=== PATIENT | female | born 1985 | race Caucasian/White ===

== ENCOUNTER → 2020-03-01 | Outpatient (CLI) | payer BC ==
[~2020-03-01] MED LIST: BIOTIN1 MG; BIRTH CONTROL PILL; FLEXERIL 1010 MG/TAB PO; MOTRIN 800800 MG/TAB PO; NORCO 325 MG-51 TAB PO; PERCOCET 325 MG1 TA2 PO; PRENATAL1 TA7 PO; PROTONIX 40MG T40 MG PO; ST JOHN S WORT; VALIUM 5MG T5 MG/TAB PO; [UNRECOGNIZED DRUG - OTHER]
== END ==
LOC: DIA.ED
DX: O24.419 Gestational diabetes mellitus in pregnancy, unspecified control (principal)
CPT/HCPCS: G0108

== ENCOUNTER → 2020-03-15 | Outpatient (CLI) | payer BC | LOC: DIA.ED 11:42 | DX: O24.419 Gestational diabetes mellitus in pregnancy, unspecified control (principal) | CPT/HCPCS: G0108 ==

== ENCOUNTER 2020-04-13 07:56 | Inpatient (IN) | payer BC ==
[~2020-04-13] VITALS: Ht 154.9 cm; Wt 62.3 kg
--- NOTE | 2020-04-13 09:15 | NUR ---
Report received from Rylee Potts at [facility]. Pt gave via at home at approx 0555, 30 min- 1 hour after ctx started and water broke. Ambulance was called and arrived at the home approx 5 min after infant's . Pt arrived at [facility] via ambulance at 0626. Per reports she had not yet delivered placenta upon arrival Placenta delivered at 0631. Pt reported had what they thought was a small placental tear, but required no stitches. Pt was being given LR with pitocin at 150 mg/ hr. She received a bolus of 1000 ml NS after BP dropped to 70's /50's. Pt also given 4 mg zofran at that time for nausea. Assessment at [place] included fundal height of 1 down from umbilicus, VSS, bleeding min to moderate.18 gauge IV in right forearm and 20 gauge IV in left forearm. Pt was GDM, diet controlled and 37+ weeks gestation. Pt and presently in route to [facility] for admission via ambulance. 0940: Report received from EMS transport team. Pt's VSS with minimal bleeding. Pt doing own fundal massage. Currently has LR with pitocin running at 125 ml/hr.
[2020-04-13 10:05] VITALS: BP 108/53; PULSE 75; TEMP 98.4
--- NOTE | 2020-04-13 10:05 | NUR ---
Patient onto unit via stretcher from EMS. Report from Joselito received. Patient oriented to room and plan of care. VS taken. Fundus firm, lochia WNL. Assessment completed. Consents signed.
[2020-04-13] MEDS ORDERED: LEXAPRO20 MG PO (10:20)
[2020-04-13] MEDS ORDERED: OSCAL 500 TAB500 MG PO (10:21)
[2020-04-13 11:47] LABS: BASO % 0.2 % (0.0-2.0); EOS % 0.1 % (0-4.0); GRAN # 10.5 (1.4-6.5); GRAN % 86.7 % (42.2-75.2); LYMPH # 0.9 (1.2-3.4); LYMPH % 7.3 % (20.0-51.0); MEAN CELL VOLUME 97 fl (80.0-100.0); MEAN CORPUSCULAR HGB CONC 34 g/dl (33.0-37.0); MEAN PLATELET VOLUME 10.1 fl (7.4-10.4); MONO # 0.6 (0.1-0.6); PLATELET COUNT 192 K/mm3 (130-400); REDCELL DISTRIBUTION WIDTH-CV 13.4 % (11.5-14.5)
[2020-04-13 11:48] LABS: HEMOGLOBIN 9.6 g/dl (12.5-16.0); MEAN CORPUSCULAR HEMOGLOBIN 33 pg (27.0-31.0)
[2020-04-13 12:35] VITALS: BP 112/58; PULSE 70; TEMP 98.5
[2020-04-13 17:33] VITALS: BP 103/69; PULSE 70; TEMP 97.5
[2020-04-13 20:30] VITALS: BP 129/54; PULSE 70; TEMP 98.4
[2020-04-14 02:35] VITALS: BP 117/71; PULSE 67; TEMP 98.2
[2020-04-14 08:00] VITALS: BP 128/68; PULSE 66; TEMP 97.7
[2020-04-14] MEDS ORDERED: IBU600 MG PO (08:43)
== END 2020-04-14 13:00 | disposition home or self-care (01) | DRG 776 ==
LOC: OB 07:56
PROVIDERS: ADMIT Student in an Organized Health Care Education/Training Program
DX: Z39.0 Encounter for care and examination of mother immediately after delivery (principal); O24.410 Gestational diabetes mellitus in pregnancy, diet controlled; O99.343 Other mental disorders complicating pregnancy, third trimester; F41.9 Anxiety disorder, unspecified; O35.9XX0 Maternal care for (suspected) fetal abnormality and damage, unspecified, not applicable or unspecified; Z3A.37 37 weeks gestation of pregnancy

== ENCOUNTER 2022-02-09 19:55 | Outpatient (CLI) | payer BC ==
[~2022-02-09] VITALS: Ht 154.9 cm; Wt 60.0 kg
[~2022-02-09 19:55] MED LIST changes: +IBU600 MG PO; +LEXAPRO20 MG PO; +OSCAL 500 TAB500 MG PO
--- NOTE | 2022-02-09 20:00 | NUR ---
to unit via wheelchair, accompanied by spouse for labor assessment. Pt reports contractions started getting stronger @ 1630, stating "I took my Procardia @ 1530" Oriented to room monitor plan of care.
[2022-02-09 20:15] VITALS: BP 142/91; PULSE 87
--- NOTE | 2022-02-09 20:50 | NUR ---
Plan of care reviewed with pt and sppouse. Questions invited and answered. 18 gauge to L hand, labs obtained. IV of LR started @ bolus rate. Terb 0.25 mg SQ to L upper arm.
[2022-02-09 21:00] VITALS: PULSE 95
[2022-02-09] MEDS ORDERED: GLUCOPHAGE500 MG/TAB PO (21:43)
[2022-02-09] MEDS ORDERED: PROCARDIA10 MG PO (21:44)
[2022-02-09] MEDS ORDERED: ZOLOFT 100MG100 MG PO (21:45)
[2022-02-09 22:00] VITALS: PULSE 97
--- NOTE | 2022-02-09 22:00 | NUR ---
IV to INT.
[2022-02-09 22:30] VITALS: PULSE 93
[2022-02-09 22:51] LABS: COLLECTION METHOD CLEAN CATCH
[2022-02-09 22:58] LABS: MUCOUS Present (NOT PRESENT); PH 6 (5-8); SQUAMOUS EPITHELIAL None Seen /hpf (0-10); URINE APPEARANCE Clear (CLEAR/HAZY); URINE BACTERIA Rare /hpf (NONE SEEN); URINE BILIRUBIN Negative (NEGATIVE); URINE BLOOD Negative (NEGATIVE); URINE COLOR Straw (YELLOW); URINE GLUCOSE Negative (NEGATIVE); URINE KETONE 1+ (NEGATIVE); URINE LEUKOCYTE ESTERASE Negative (NEGATIVE); URINE NITRATE Negative (NEGATIVE); URINE PROTEIN(semi-quant) Negative (NEGATIVE); URINE RBC None Seen /hpf (0-2); URINE UROBILINOGEN Negative (NEGATIVE); URINE WBC 0-2 /hpf (0-2)
[2022-02-09 23:00] VITALS: PULSE 91
[2022-02-09 23:30] VITALS: BP 102/55; PULSE 78
--- NOTE | 2022-02-10 07:32 | NUR ---
0732 - EFM TRACING MATERNAL HR. MONITOR ADJUSTED. CARE ONGOING.
== END 2022-02-10 09:00 | disposition home or self-care (01) ==
LOC: LDRO 19:55
PROVIDERS: Obstetrics & Gynecology
DX: O47.03 False labor before 37 completed weeks of gestation, third trimester (principal); Z3A.33 33 weeks gestation of pregnancy
CPT/HCPCS: J3105; J7120

== ENCOUNTER 2022-02-11 13:41 | Outpatient (CLI) | payer BC ==
[~2022-02-11] VITALS: Ht 154.9 cm; Wt 60.5 kg
[~2022-02-11 13:41] MED LIST changes: +GLUCOPHAGE500 MG/TAB PO; +PROCARDIA10 MG PO; +ZOLOFT 100MG100 MG PO
--- NOTE | 2022-02-11 13:45 | NUR ---
1345 PT ARRIVED AMBULATORY TO UNIT WITH CONCERNS OF POSSIBLE ROM. PT REPORTS OCCASIONAL LEAKING BUT UNSURE IF URINE OR AMNIOTIC FLUID. PT REPORTS INCONSISTENT CONTRACTIONS, NORMAL MOVEMENT OF BABY, DENIES VAGINAL BLEEDING. PT IN GOWN AND ON MONITORS. VITAL SIGNS WNL. ROM+ COLLECTED PER DR. JONES ORDER. PLAN OF CARE DISCUSSED WITH PT AND WHO IS AT BEDSIDE.
[2022-02-11 14:33] VITALS: BP 122/77; PULSE 74
== END 2022-02-11 14:45 | disposition home or self-care (01) ==
LOC: LDRO 13:41
DX: Z34.93 Encounter for supervision of normal pregnancy, unspecified, third trimester (principal); Z3A.33 33 weeks gestation of pregnancy

== ENCOUNTER → 2022-02-27 | Outpatient (CLI) | payer BC ==
[~2022-02-27] VITALS: Ht 154.9 cm; Wt 61.8 kg
[~2022-02-27] MED LIST changes: +IBU800 M1 PO
[2022-02-27 16:30] VITALS: BP 120/64; PULSE 70; TEMP 98.9
--- NOTE | 2022-02-27 17:30 | NUR ---
36 YO AT 36.0 WKS GESTATION TO LR [address] TOUSSAINT OFFICE FOR IV FLUIDS AND MONITORING. PT WAS HAVING LATE DECELERATIONS IN OFFICE, PT REPORTS A FEW IRREG CTXS, DENIES VAGINAL BLEEDING OR LEAKING FLUID AND REPORTS GOOD ACTIVITY
--- NOTE | 2022-02-27 17:37 | NUR ---
1635 20 G TO LEFT HAND X1 ATTEMPT, LR BOLUS STARTED, INFUSING WITHOUT DIFFICULTY
--- NOTE | 2022-02-27 17:40 | NUR ---
1700 - DR KULKARNI PHONES RN, NOTIFIED CAT 1 TRACING, ONLY 3 CTXS IN THE HOUR, IV FLUIDS ALMOST INFUSED. ORDER TO DISMISS HOME WHEN FLUIDS INFUSED 172 - DISCHARGE INSTRUCTIONS GIVEN, VERBALIZES GOOD UNDERSTANDING, IV FLUIDS INFUSED, IV DC'D 173 - DISMISSED AMBULATORY WITH
== END ==
LOC: LDRO 15:55
DX: Z34.90 Encounter for supervision of normal pregnancy, unspecified, unspecified trimester (principal); Z3A.00 Weeks of gestation of pregnancy not specified
CPT/HCPCS: J7120

== ENCOUNTER 2022-03-07 14:29 | Inpatient (IN) | payer BC ==
[2022-03-07] VITALS (27 sets, daily range): BP systolic 106–146; BP diastolic 56–82; PULSE 57–110; TEMP 97.6–98
[~2022-03-07] VITALS: Ht 154.9 cm; Wt 62.7 kg
[~2022-03-07 14:29] MED LIST changes: -IBU800 M1 PO
--- NOTE | 2022-03-07 14:35 | NUR ---
PT ARRIVES VIA WHEELCHAIR TO UNIT C/O CONTRACTIONS AND REPORTS HX OF PRECIPITOUS LABORS, LAST BABY BORN AT HOME. PT LIVES 1.5 HOURS AWAY. STATES CONTRACTIONS STARTED AROUND 1220, WORSENING WITH PAIN AND CURRENTLY EVERY 3-5 MINUTES APART. THIS NURSE AT BEDSIDE, PT UNABLE TO TALK THROUGH CONTRACTIONS. FIRM WITH PALPATION. DENIES LOF AND REPORTS POSITIVE MOVEMENT. CATEGORY 1 EFM TRACING UPON ARRIVAL. INITIAL SVE 3/70/-2. NO FLUID NOTED ON GLOVE.
--- NOTE | 2022-03-07 15:10 | NUR ---
1510-Orders recieved to admit patient. THIERNO Gregory notified of patients desire for an epidural. 1515- IV to left forearm blood collected and sent to lab per orders, IVF infusing. 1520-Patient sitting upright for an epidural placement. 1527-Test dose administered by THIERNO Gregory. Patient tolerated procedure well See anesthesia records. 1535-Patient calls out reports "I feel pressure and I think my water broke" Large amount of clear fluid fills under pad. SVE 4-5/80/-1. No fluid on exam glove. Amnitest of fluid on pad +. Notified see MD notification.
[2022-03-07 15:33] LABS: BASO % 0.4 % (0.0-2.0); EOS # 0.1 K/mm3 (0.0-0.7); EOS % 0.6 % (0.0-4.0); GRAN # 5.8 K/mm3 (1.4-6.5); GRAN % 72.7 % (42.2-75.2); HEMATOCRIT 37.8 % (37.0-47.0); LYMPH # 1.5 K/mm3 (1.2-3.4); LYMPH % 18.3 % (20.0-51.0); MEAN CELL VOLUME 92 fl (80.0-100.0); MEAN CORPUSCULAR HEMOGLOBIN 32 pg (27-31); MEAN CORPUSCULAR HGB CONC 34 g/dl (33.0-37.0); MONO # 0.6 K/mm3 (0.1-0.6); MONO % 7.6 % (1.7-9.3); PLATELET COUNT 230 K/mm3 (130-400); RED BLOOD COUNT 4.13 M/mm3 (4.10-5.30)
--- NOTE | 2022-03-07 17:05 | NUR ---
1705-Dr. Llanes on unit. SVE by , Repositioned melvin per MD orders.
--- NOTE | 2022-03-07 18:25 | NUR ---
1825-SVE 2 Dr. Llanes updated. See MD notification. Report given to GENOVEAV Bowens who assumes care of patient at this time.
--- NOTE | 2022-03-07 18:38 | NUR ---
Per providers orders pitocin explained and started at 2mus/hr. Per verbalized her understanding. 1910: Pt took own blood sugar at this time due to feeling tired. BS 80 per pts own glucometer. 1939: Pt feeling a lot of pressure with contractions. SVE 7/+1. called and requested at hospital for delivery. See physican notification. 1951: Pt continuing to feel more pressure with contractions. SVE C/+2. Pitocin stopped. 1958: at bedside for delivery. Pt prepped for delivery. 2001: Spontaneous delivery of viable male by . Infant to mothers chest where dried and stimulated by nursery RN. Cord clamped X2 and cut by FOB. Care of assummed by Brigida TOMAS. 2007: Spontaneous delivery of intact placenta. Pitocin started at 333mus/hr per protocol. Perineum intact. Pericare completed. Pads changed and ice pack applied to perineum. Safety precautions explained to pt and spouse who verbalize their understanding. Call light within reach.
[2022-03-08 03:00] VITALS: BP 118/67; PULSE 63; TEMP 98.3
[2022-03-08 07:47] VITALS: BP 122/75; PULSE 69; TEMP 97.9
[2022-03-08] MEDS ORDERED: IBU800 M1 PO (08:47)
[2022-03-08 12:31] VITALS: BP 122/76; PULSE 65; TEMP 98.3
[2022-03-08 17:05] VITALS: BP 132/77; PULSE 60; TEMP 97.5
[2022-03-08 19:00] VITALS: BP 107/64; PULSE 60; TEMP 97.9
[2022-03-09 07:35] VITALS: BP 126/68; PULSE 66; TEMP 98.1
== END 2022-03-09 09:40 | disposition home or self-care (01) | DRG 807 ==
LOC: LDRO 14:29 → LDR 15:12 → OB 15:12 → LDR 16:30 → OB 23:10
PROVIDERS: ADMIT Student in an Organized Health Care Education/Training Program
PROC: 10E0XZZ Delivery of Products of Conception, External Approach (ICD-10-PCS; principal; 2022-03-07)
DX: O24.425 Gestational diabetes mellitus in childbirth, controlled by oral hypoglycemic drugs (principal); Z37.0 Single live birth; O99.343 Other mental disorders complicating pregnancy, third trimester; F32.A Depression, unspecified; O99.613 Diseases of the digestive system complicating pregnancy, third trimester; K21.9 Gastro-esophageal reflux disease without esophagitis; Z3A.37 37 weeks gestation of pregnancy
CPT/HCPCS: J2590; J3010; J7120